=== PATIENT | male | born 1955 | race Caucasian/White ===

== ENCOUNTER 2022-01-03 05:40 | Inpatient (IN) | payer OTHER ==
[2022-01-03] MEDS ORDERED: BUPIVACAINE HCL/PF 0.25% (2.5MG/ML) 10 ML VIAL ONE (11:26)
[2022-01-03] MEDS ORDERED: INDOCYANINE GREEN 25 MG/10 ML VIAL IVPUSH ONE (11:33)
[2022-01-03] MEDS ORDERED: MIDAZOLAM HCL 2 MG/2 ML SINGLE DOSE VIAL ONE (11:44)
[2022-01-03] MEDS ORDERED: PROPOFOL 20 ML ONE (11:44)
[2022-01-03] MEDS ORDERED: FENTANYL CITRATE/PF 50 MCG/ML VIAL ONE ×8 (11:44→18:11)
[2022-01-03] MEDS ORDERED: ONDANSETRON 4 MG/2 ML VIAL ONE (11:48)
[2022-01-03] MEDS ORDERED: LIDOCAINE HCL/PF 2% SDV 5ML VIAL ONE (11:48)
[2022-01-03] MEDS ORDERED: DEXAMETHASONE SOD PHOSPHATE 4 MG/1 ML VIAL ONE (11:48)
[2022-01-03] MEDS ORDERED: ceFAZolin SODIUM 1 GM VIAL ONE (11:48)
[2022-01-03] MEDS ORDERED: ceFAZolin SODIUM 1 GM VIAL IVPB ONE (11:49)
[2022-01-03] MEDS ORDERED: ROCURONIUM BROMIDE 50 MG/5 ML SYRINGE ONE ×2 (11:50→13:45)
[2022-01-03] MEDS ORDERED: NEOSTIGMINE METHYLSULFATE 0.5 MG/ML - 10 ML MDV ONE (12:58)
[2022-01-03] MEDS ORDERED: GLYCOPYRROLATE 0.2 MG/1 ML VIAL ONE (12:58)
[2022-01-03] MEDS ORDERED: PROMETHAZINE HCL 25 MG/1 ML VIAL IVPUSH PRN (13:09)
[2022-01-03] MEDS ORDERED: ONDANSETRON 4 MG/2 ML VIAL IVPUSH PRN (13:09)
[2022-01-03] MEDS ORDERED: oxyCODONE HCL 5 MG TABLET PO PRN ×2 (13:09)
[2022-01-03] MEDS ORDERED: LACTATED RINGERS SOLUTION 1,000 ML IV SCH (13:15)
[2022-01-03] MEDS ORDERED: KETAMINE HCL 500 MG/10 ML VIAL ONE (13:57)
[2022-01-03] MEDS ORDERED: SEVOFLURANE 250 ML BTL ONE ×2 (15:12)
[2022-01-03] MEDS ORDERED: ACETAMINOPHEN INJECTION 100 ML IVPB ONE (17:12)
[2022-01-03] MEDS ORDERED: HYDROmorphone *PCA* 10MG/50ML DISP.SYRIN PCA SCH (17:15)
[2022-01-03] MEDS: ACETAMINOPHEN 1000 MG/100 ML BAG IVPB SCH ×2 (17:36→23:05)
[2022-01-03] MEDS: CEFOXITIN SODIUM 1 GM in DEXTROSE 5%-WATER - 100 ML IVPB SCH (18:00)
[2022-01-03] MEDS ORDERED: KETOROLAC TROMETHAMINE 30 MG/1 ML VIAL IVPUSH SCH (18:00)
[2022-01-03] MEDS: PIPERACILLIN/TAZOB 2.25 GM 2.25 GM in DEXTROSE 5%-WATER - 50 ML IVPB SCH (18:50)
[2022-01-03] MEDS ORDERED: HYDROmorphone *PCA* 10MG/50ML DISP.SYRIN ONE (19:10)
[2022-01-03 20:58] LABS: HEMATOCRIT 36.7 % (35.4-49); HEMOGLOBIN 11.5 GM/dL (11.7-16.9); MCH 29.9 pg (25.7-33.7); MCHC 31.5 g/dl (32.0-35.9); MEAN CELL VOLUME 94.8 fl (80-96); MEAN PLT VOLUME 8.1 fl (7.5-11.1); PLATELET COUNT 215 10^3/uL (134-434); RBC 3.87 M/mm3 (4.00-5.60); RDW 13.9 % (11.9-15.9); WHITE BLOOD COUNT 14.6 K/mm3 (4.0-10.0)
[2022-01-03 21:21] LABS: CALCIUM 8.6 mg/dL (8.5-10.1)
[2022-01-03 21:23] LABS: BLOOD UREA NITROGEN 41.7 mg/dL (7-18)
[2022-01-03 21:24] LABS: CREATININE 2.8 mg/dL (0.55-1.3)
[2022-01-03] MEDS ORDERED: ATORVASTATIN CA 10 MG TABLET (FP) PO SCH (22:00)
[2022-01-03 22:02] LABS: ANISOCYTOSIS 1+; MACROCYTOSIS 0
[2022-01-03] MEDS: LIPASE/PROTEASE/AMYLASE 36,000 UNIT CAPSULE PO SCH (22:56)
[2022-01-03] MEDS: LACTATED RINGERS SOLUTION 1,000 ML IV SCH (23:06)
[2022-01-04] MEDS: PIPERACILLIN/TAZOB 2.25 GM 2.25 GM in DEXTROSE 5%-WATER - 50 ML IVPB SCH ×3 (01:44→17:16)
[2022-01-04] MEDS: CEFOXITIN SODIUM 1 GM in DEXTROSE 5%-WATER - 100 ML IVPB SCH ×2 (03:05→12:36)
[2022-01-04] MEDS: ACETAMINOPHEN 1000 MG/100 ML BAG IVPB SCH ×2 (05:51→10:11)
[2022-01-04] MEDS: LIPASE/PROTEASE/AMYLASE 36,000 UNIT CAPSULE PO SCH ×3 (08:52→17:07)
[2022-01-04] MEDS: FERROUS SO4 325 MG TABLET (FP) PO SCH (10:06)
[2022-01-04] MEDS: PANTOPRAZOLE 20 MG TABLET PO SCH (10:06)
[2022-01-04 12:04] LABS: HEMATOCRIT 36.8 % (35.4-49); HEMOGLOBIN 11.7 GM/dL (11.7-16.9); MCHC 31.8 g/dl (32.0-35.9); MEAN CELL VOLUME 94.1 fl (80-96); MEAN PLT VOLUME 8.9 fl (7.5-11.1); PLATELET COUNT 207 10^3/uL (134-434); RBC 3.91 M/mm3 (4.00-5.60); RDW 13.5 % (11.9-15.9); WHITE BLOOD COUNT 13.3 K/mm3 (4.0-10.0)
[2022-01-04 13:09] LABS: BLOOD UREA NITROGEN 44.3 mg/dL (7-18); CALCIUM 8.8 mg/dL (8.5-10.1)
[2022-01-04 13:10] LABS: ALBUMIN 3.2 g/dl (3.4-5.0)
[2022-01-04 13:13] LABS: BILIRUBIN,DIRECT 0.1 mg/dL (0.0-0.2); CREATININE 2.7 mg/dL (0.55-1.3)
[2022-01-04 13:15] LABS: BILIRUBIN,TOTAL 0.5 mg/dL (0.2-1); TOT PROT 6.8 g/dl (6.4-8.2)
[2022-01-04] MEDS ORDERED: TRIMETHOBENZAMIDE HCL 200MG/2ML INJ IM ONE (13:24)
[2022-01-04] MEDS ORDERED: ACETAMINOPHEN 1000 MG/100 ML BAG IVPB PRN (17:50)
[2022-01-04] MEDS: LACTATED RINGERS SOLUTION 1,000 ML IV SCH (18:48)
[2022-01-04] MEDS ORDERED: oxyCODONE HCL 5 MG TABLET PO PRN (19:31)
[2022-01-04] MEDS ORDERED: DOCUSATE SODIUM 100 MG CAPSULE (FP) PO PRN (19:31)
[2022-01-05] MEDS: PIPERACILLIN/TAZOB 2.25 GM 2.25 GM in DEXTROSE 5%-WATER - 50 ML IVPB SCH ×3 (02:02→17:29)
[2022-01-05] MEDS: LIPASE/PROTEASE/AMYLASE 36,000 UNIT CAPSULE PO SCH ×3 (08:23→17:28)
[2022-01-05] MEDS: FERROUS SO4 325 MG TABLET (FP) PO SCH (09:49)
[2022-01-05] MEDS: PANTOPRAZOLE 20 MG TABLET PO SCH (09:49)
[2022-01-05 11:15] LABS: BASO % 0.2 % (0-2.0); EOS % 0.2 % (0-4.5); HEMATOCRIT 36.7 % (35.4-49); HEMOGLOBIN 11.9 GM/dL (11.7-16.9); LYMPH % 4.6 % (8-40); MCH 30.1 pg (25.7-33.7); MCHC 32.3 g/dl (32.0-35.9); MEAN CELL VOLUME 93.1 fl (80-96); MEAN PLT VOLUME 8.3 fl (7.5-11.1); MONO % 4.5 % (3.8-10.2); NEUT % 90.5 % (42.8-82.8); PLATELET COUNT 241 10^3/uL (134-434); RBC 3.94 M/mm3 (4.00-5.60); RDW 13.6 % (11.9-15.9); WHITE BLOOD COUNT 13.1 K/mm3 (4.0-10.0)
[2022-01-05 11:49] LABS: CALCIUM 8.8 mg/dL (8.5-10.1)
[2022-01-05 11:50] LABS: BLOOD UREA NITROGEN 40.3 mg/dL (7-18); MAGNESIUM 1.8 mg/dL (1.8-2.4)
[2022-01-05 11:52] LABS: PHOSPHOROUS 2.8 mg/dL (2.5-4.9)
[2022-01-05 11:53] LABS: CREATININE 2.6 mg/dL (0.55-1.3)
[2022-01-05 11:54] LABS: BILIRUBIN,TOTAL 0.5 mg/dL (0.2-1); TOT PROT 6.4 g/dl (6.4-8.2)
[2022-01-05] MEDS ORDERED: ONDANSETRON 4 MG/2 ML VIAL IVPUSH ONE (14:00)
[2022-01-05] MEDS: LACTATED RINGERS SOLUTION 1,000 ML IV SCH (18:46)
[2022-01-05] MEDS ORDERED: oxyCODONE HCL 5 MG TABLET PO PRN (18:49)
[2022-01-06] MEDS: PIPERACILLIN/TAZOB 2.25 GM 2.25 GM in DEXTROSE 5%-WATER - 50 ML IVPB SCH ×3 (01:48→16:59)
[2022-01-06] MEDS: LACTATED RINGERS SOLUTION 1,000 ML IV SCH (06:01)
[2022-01-06] MEDS: PANTOPRAZOLE 20 MG TABLET PO SCH (09:03)
[2022-01-06] MEDS: FERROUS SO4 325 MG TABLET (FP) PO SCH (09:03)
[2022-01-06] MEDS: LIPASE/PROTEASE/AMYLASE 36,000 UNIT CAPSULE PO SCH ×3 (09:03→16:58)
[2022-01-06 09:18] LABS: BASO % 0.3 % (0-2.0); EOS % 2.8 % (0-4.5); HEMATOCRIT 33.6 % (35.4-49); LYMPH % 10.5 % (8-40); MCH 30.8 pg (25.7-33.7); MCHC 32.9 g/dl (32.0-35.9); MEAN CELL VOLUME 93.5 fl (80-96); MEAN PLT VOLUME 8.3 fl (7.5-11.1); MONO % 6.3 % (3.8-10.2); NEUT % 80.1 % (42.8-82.8); PLATELET COUNT 225 10^3/uL (134-434); RBC 3.59 M/mm3 (4.00-5.60); RDW 13.6 % (11.9-15.9); WHITE BLOOD COUNT 9.6 K/mm3 (4.0-10.0)
[2022-01-06 09:26] LABS: ALBUMIN 2.8 g/dl (3.4-5.0); BLOOD UREA NITROGEN 31.9 mg/dL (7-18); CALCIUM 8.8 mg/dL (8.5-10.1)
[2022-01-06 09:29] LABS: CREATININE 2.5 mg/dL (0.55-1.3); PHOSPHOROUS 2.5 mg/dL (2.5-4.9)
[2022-01-06 09:31] LABS: BILIRUBIN,TOTAL 0.6 mg/dL (0.2-1); TOT PROT 6.3 g/dl (6.4-8.2)
[2022-01-06] MEDS: OCTREOTIDE ACETATE 100 MCG/1 ML SQ SCH ×3 (11:36→22:26)
[2022-01-07] MEDS: PIPERACILLIN/TAZOB 2.25 GM 2.25 GM in DEXTROSE 5%-WATER - 50 ML IVPB SCH ×3 (01:10→17:41)
[2022-01-07] MEDS: OCTREOTIDE ACETATE 100 MCG/1 ML SQ SCH ×3 (06:31→21:35)
[2022-01-07] MEDS: PANTOPRAZOLE 20 MG TABLET PO SCH (09:28)
[2022-01-07] MEDS: FERROUS SO4 325 MG TABLET (FP) PO SCH (09:28)
[2022-01-07] MEDS: LIPASE/PROTEASE/AMYLASE 36,000 UNIT CAPSULE PO SCH ×3 (09:28→17:41)
[2022-01-07 11:58] LABS: BASO % 0.4 % (0-2.0); EOS % 3.8 % (0-4.5); HEMATOCRIT 34.3 % (35.4-49); HEMOGLOBIN 11.1 GM/dL (11.7-16.9); LYMPH % 7.7 % (8-40); MCHC 32.4 g/dl (32.0-35.9); MEAN CELL VOLUME 92.8 fl (80-96); MEAN PLT VOLUME 8.1 fl (7.5-11.1); MONO % 6.7 % (3.8-10.2); NEUT % 81.4 % (42.8-82.8); PLATELET COUNT 260 10^3/uL (134-434); RDW 13.2 % (11.9-15.9); WHITE BLOOD COUNT 9.9 K/mm3 (4.0-10.0)
[2022-01-07 12:33] LABS: ALBUMIN 2.8 g/dl (3.4-5.0)
[2022-01-07 12:34] LABS: BLOOD UREA NITROGEN 36.9 mg/dL (7-18); MAGNESIUM 2.1 mg/dL (1.8-2.4)
[2022-01-07 12:37] LABS: CREATININE 2.6 mg/dL (0.55-1.3); PHOSPHOROUS 2.9 mg/dL (2.5-4.9)
[2022-01-07 12:38] LABS: BILIRUBIN,TOTAL 0.8 mg/dL (0.2-1); TOT PROT 6.5 g/dl (6.4-8.2)
[2022-01-07] MEDS: HEPARIN NA (PORCINE) 5,000 UNITS/ML 1ML VIAL SQ SCH ×2 (13:21→21:35)
[2022-01-07] MEDS ORDERED: HEPARIN NA (PORCINE) 5,000 UNITS/ML 1ML VIAL SQ SCH ×2 (14:00)
[2022-01-08] MEDS: PIPERACILLIN/TAZOB 2.25 GM 2.25 GM in DEXTROSE 5%-WATER - 50 ML IVPB SCH ×3 (01:17→17:15)
[2022-01-08] MEDS: HEPARIN NA (PORCINE) 5,000 UNITS/ML 1ML VIAL SQ SCH ×3 (06:04→21:57)
[2022-01-08] MEDS: OCTREOTIDE ACETATE 100 MCG/1 ML SQ SCH ×3 (06:04→21:58)
[2022-01-08] MEDS: LIPASE/PROTEASE/AMYLASE 36,000 UNIT CAPSULE PO SCH ×3 (08:25→17:14)
[2022-01-08 09:53] LABS: BASO % 0.4 % (0-2.0); EOS % 4.8 % (0-4.5); HEMOGLOBIN 11.9 GM/dL (11.7-16.9); LYMPH % 15.2 % (8-40); MCHC 32.2 g/dl (32.0-35.9); MEAN CELL VOLUME 93.1 fl (80-96); MEAN PLT VOLUME 8.1 fl (7.5-11.1); MONO % 8.6 % (3.8-10.2); PLATELET COUNT 301 10^3/uL (134-434); RBC 3.98 M/mm3 (4.00-5.60); RDW 13.6 % (11.9-15.9); WHITE BLOOD COUNT 7.4 K/mm3 (4.0-10.0)
[2022-01-08] MEDS: PANTOPRAZOLE 20 MG TABLET PO SCH (09:54)
[2022-01-08] MEDS: FERROUS SO4 325 MG TABLET (FP) PO SCH (09:54)
[2022-01-08 10:12] LABS: ALBUMIN 3.1 g/dl (3.4-5.0); BLOOD UREA NITROGEN 43.1 mg/dL (7-18)
[2022-01-08 10:15] LABS: PHOSPHOROUS 3.2 mg/dL (2.5-4.9)
[2022-01-08 10:18] LABS: CREATININE 2.9 mg/dL (0.55-1.3)
[2022-01-08 10:20] LABS: BILIRUBIN,TOTAL 0.6 mg/dL (0.2-1)
[2022-01-08] MEDS: LACTATED RINGERS SOLUTION 1,000 ML/1,000 ML INFUS.BAG IV SCH (17:15)
[2022-01-09] MEDS: PIPERACILLIN/TAZOB 2.25 GM 2.25 GM in DEXTROSE 5%-WATER - 50 ML IVPB SCH ×3 (01:13→17:40)
[2022-01-09] MEDS: HEPARIN NA (PORCINE) 5,000 UNITS/ML 1ML VIAL SQ SCH ×3 (06:15→21:44)
[2022-01-09] MEDS: LACTATED RINGERS SOLUTION 1,000 ML/1,000 ML INFUS.BAG IV SCH (06:15)
[2022-01-09] MEDS: OCTREOTIDE ACETATE 100 MCG/1 ML SQ SCH ×3 (06:15→21:44)
[2022-01-09] MEDS: LIPASE/PROTEASE/AMYLASE 36,000 UNIT CAPSULE PO SCH ×3 (09:17→17:39)
[2022-01-09] MEDS: PANTOPRAZOLE 20 MG TABLET PO SCH (09:22)
[2022-01-09] MEDS: FERROUS SO4 325 MG TABLET (FP) PO SCH (09:22)
[2022-01-09 10:39] LABS: CALCIUM 8.7 mg/dL (8.5-10.1)
[2022-01-09 10:40] LABS: ALBUMIN 2.8 g/dl (3.4-5.0); BLOOD UREA NITROGEN 41.1 mg/dL (7-18); MAGNESIUM 1.9 mg/dL (1.8-2.4)
[2022-01-09 10:44] LABS: BILIRUBIN,TOTAL 0.5 mg/dL (0.2-1); TOT PROT 6.2 g/dl (6.4-8.2)
[2022-01-09 10:45] LABS: CREATININE 2.6 mg/dL (0.55-1.3); PHOSPHOROUS 2.9 mg/dL (2.5-4.9)
[2022-01-09 10:56] LABS: BASO % 0.3 % (0-2.0); EOS % 4.8 % (0-4.5); HEMATOCRIT 32.9 % (35.4-49); HEMOGLOBIN 10.8 GM/dL (11.7-16.9); LYMPH % 17.1 % (8-40); MCH 30.2 pg (25.7-33.7); MCHC 32.8 g/dl (32.0-35.9); MEAN CELL VOLUME 92.2 fl (80-96); MEAN PLT VOLUME 8.1 fl (7.5-11.1); MONO % 10.7 % (3.8-10.2); NEUT % 67.1 % (42.8-82.8); PLATELET COUNT 275 10^3/uL (134-434); RBC 3.57 M/mm3 (4.00-5.60); RDW 13.5 % (11.9-15.9)
[2022-01-10] MEDS: PIPERACILLIN/TAZOB 2.25 GM 2.25 GM in DEXTROSE 5%-WATER - 50 ML IVPB SCH ×2 (01:01→10:08)
[2022-01-10 04:32] VITALS: PULSE 68
[2022-01-10] MEDS: HEPARIN NA (PORCINE) 5,000 UNITS/ML 1ML VIAL SQ SCH ×2 (05:59→14:05)
[2022-01-10] MEDS: OCTREOTIDE ACETATE 100 MCG/1 ML SQ SCH ×2 (06:00→15:13)
[2022-01-10] MEDS: LACTATED RINGERS SOLUTION 1,000 ML/1,000 ML INFUS.BAG IV SCH ×2 (06:22→16:29)
[2022-01-10] MEDS: PANTOPRAZOLE 20 MG TABLET PO SCH (10:08)
[2022-01-10] MEDS: LIPASE/PROTEASE/AMYLASE 36,000 UNIT CAPSULE PO SCH ×3 (10:08→17:19)
[2022-01-10] MEDS: FERROUS SO4 325 MG TABLET (FP) PO SCH (10:08)
[2022-01-10 12:25] LABS: BASO % 0.3 % (0-2.0); EOS % 5.3 % (0-4.5); HEMATOCRIT 33.4 % (35.4-49); MCH 30.5 pg (25.7-33.7); MCHC 32.9 g/dl (32.0-35.9); MEAN CELL VOLUME 92.6 fl (80-96); MEAN PLT VOLUME 8.4 fl (7.5-11.1); MONO % 5.9 % (3.8-10.2); NEUT % 73.5 % (42.8-82.8); PLATELET COUNT 298 10^3/uL (134-434); RBC 3.61 M/mm3 (4.00-5.60); RDW 13.2 % (11.9-15.9); WHITE BLOOD COUNT 7.4 K/mm3 (4.0-10.0)
[2022-01-10 12:49] LABS: ALBUMIN 2.8 g/dl (3.4-5.0); CALCIUM 8.5 mg/dL (8.5-10.1)
[2022-01-10 12:50] LABS: BLOOD UREA NITROGEN 35.5 mg/dL (7-18); MAGNESIUM 1.8 mg/dL (1.8-2.4)
[2022-01-10 12:53] LABS: CREATININE 2.5 mg/dL (0.55-1.3)
[2022-01-10 12:54] LABS: BILIRUBIN,TOTAL 0.4 mg/dL (0.2-1); TOT PROT 6.3 g/dl (6.4-8.2)
[2022-01-10 13:33] VITALS: BMI 25.2
[2022-01-10 14:15] VITALS: BP 114/58; RESP 18; TEMP 98.2
[2022-01-10] MEDS ORDERED: AMOX TR/POT CLAV 250MG/125MG TABLETS PO SCH (17:30)
== END 2022-01-10 19:05 | disposition home health service (06) | DRG 414 ==
LOC: JASU-SURG 05:40 → J2C 16:05 → J6S 21:55
PROVIDERS: ADMIT Internal Medicine; ATTEND Internal Medicine
PROC: 0FJ44ZZ Inspection of Gallbladder, Percutaneous Endoscopic Approach (ICD-10-PCS; 2022-01-03)
PROC: 0FN40ZZ Release Gallbladder, Open Approach (ICD-10-PCS; 2022-01-03)
PROC: 0DQL0ZZ Repair Transverse Colon, Open Approach (ICD-10-PCS; 2022-01-03)
PROC: 0DBL0ZZ Excision of Transverse Colon, Open Approach (ICD-10-PCS; 2022-01-03)
PROC: 0FT40ZZ Resection of Gallbladder, Open Approach (ICD-10-PCS; principal; 2022-01-03 10:00)
DX: K80.10 Calculus of gallbladder with chronic cholecystitis without obstruction (principal); K83.1 Obstruction of bile duct; K85.81 Other acute pancreatitis with uninfected necrosis; K56.7 Ileus, unspecified; K91.89 Other postprocedural complications and disorders of digestive system; N18.4 Chronic kidney disease, stage 4 (severe); Y83.8 Other surgical procedures as the cause of abnormal reaction of the patient, or of later complication, without mention of misadventure at the time of the procedure; D72.829 Elevated white blood cell count, unspecified; E11.22 Type 2 diabetes mellitus with diabetic chronic kidney disease; H35.30 Unspecified macular degeneration
CPT/HCPCS: 36415; 74018-TC-FY; 80048; 80053; 80076; 83036; 83735; 84100; 85025; 85027; 87040; 88304-TC; 93005; 93010; 94760; 97116-GP; 97162-GP; C9803-CS; J1644; U0003; U0005

== ENCOUNTER → 2022-01-14 | Day surgery (SDC) | payer OTHER | END | disposition home or self-care (01) | LOC: JRADIR 09:35 | PROVIDERS: ATTEND Surgery | PROC: BF03YZZ Plain Radiography of Gallbladder and Bile Ducts using Other Contrast (ICD-10-PCS; principal; 2022-01-14) | DX: K85.91 Acute pancreatitis with uninfected necrosis, unspecified (principal) | CPT/HCPCS: 47531 ==